=== PATIENT | female | born 1995 | race Caucasian/White ===

== ENCOUNTER 2020-05-12 12:17 | Inpatient (IN) | payer OTHER ==
[~2020-05-12] VITALS: Ht 157.5 cm; Wt 75.3 kg
[2020-05-13] MEDS ORDERED: HIERRO (22:45)
[2020-05-13] MEDS ORDERED: PRENATAL TABLE1 EAC1 PO (22:45)
[2020-05-29] MEDS ORDERED: INTEGRA F CAPS1 EAC1 (11:13)
== END 2020-05-31 12:48 | disposition home or self-care (01) | DRG 807 ==
LOC: LDR 05-29 05:18 → OB/GYN 05-29 05:18
PROVIDERS: ADMIT Obstetrics & Gynecology; ATTEND Obstetrics & Gynecology
PROC: 10E0XZZ Delivery of Products of Conception, External Approach (ICD-10-PCS; principal; 2020-05-29)
PROC: 4A1HXFZ Monitoring of Products of Conception, Cardiac Rhythm, External Approach (ICD-10-PCS; 2020-05-29)
PROC: 3E033VJ Introduction of Other Hormone into Peripheral Vein, Percutaneous Approach (ICD-10-PCS; 2020-05-29)
DX: O80 Encounter for full-term uncomplicated delivery (principal); Z37.0 Single live birth; Z3A.40 40 weeks gestation of pregnancy; Z20.828 Contact with and (suspected) exposure to other viral communicable diseases

== ENCOUNTER 2020-05-13 22:16 | Outpatient (CLI) | payer OTHER ==
[2020-05-13] MEDS ORDERED: PRENATAL TABLE1 EAC1 PO (22:45)
[2020-05-13] MEDS ORDERED: HIERRO (22:45)
== END 2020-05-14 14:17 | disposition home or self-care (01) ==
LOC: OBS/DEL 22:16
PROVIDERS: ATTEND Obstetrics & Gynecology
DX: O26.893 Other specified pregnancy related conditions, third trimester (principal); R42 Dizziness and giddiness; Z36.89 Encounter for other specified antenatal screening

== ENCOUNTER 2020-05-15 12:26 | Outpatient (CLI) | payer OTHER ==
[~2020-05-15 12:26] MED LIST: HIERRO; PRENATAL TABLE1 EAC1 PO
== END 2020-05-16 08:16 | disposition home or self-care (01) ==
LOC: OBS/DEL 12:26
PROVIDERS: ATTEND Obstetrics & Gynecology
DX: O47.1 False labor at or after 37 completed weeks of gestation (principal)